=== PATIENT | female | born 1975 | race Caucasian/White ===

== ENCOUNTER 2021-04-29 18:59 | Emergency (ER) | payer BC | END 2021-04-29 22:20 | disposition home or self-care (01) | LOC: ER1 18:59 | DX: S61.012A Laceration without foreign body of left thumb without damage to nail, initial encounter (principal); Z23 Encounter for immunization; W26.8XXA Contact with other sharp object(s), not elsewhere classified, initial encounter; Y92.009 Unspecified place in unspecified non-institutional (private) residence as the place of occurrence of the external cause | CPT/HCPCS: 12001; 73130; 90471; 90715; 99283 ==

== ENCOUNTER 2021-12-19 05:31 | Inpatient (IN) | payer BC ==
[~2021-12-19] VITALS: Ht 157.5 cm; Wt 82.6 kg
[~2021-12-19 05:31] MED LIST: CEPHALEXIN500 M1 PO; SULFAMETHOXAZO1 EACH PO
[2021-12-19 06:49] LABS: HEMOGLOBIN 12.3 gm/dl (12.3-15.3); RED BLOOD COUNT 5.38 M/UL (4.00-5.10); WHITE BLOOD COUNT 7.3 K/UL (4.5-11.0)
[2021-12-19] MEDS ORDERED: HYDROCHLOROTHIA25 MG PO (10:48)
[2021-12-19] MEDS ORDERED: APPLE CIDER VI300 MG PO (10:53)
[2021-12-20 04:23] LABS: HEMOGLOBIN 10.8 gm/dl (12.3-15.3)
[2021-12-20 04:29] LABS: RED BLOOD COUNT 4.72 M/UL (4.00-5.10); WHITE BLOOD COUNT 9.5 K/UL (4.5-11.0)
[2021-12-21 05:02] LABS: BUN/CREATININE RATIO 13 (0-10)
[2021-12-22 02:58] LABS: HEMOGLOBIN 11.8 gm/dl (12.3-15.3); RED BLOOD COUNT 5.25 M/UL (4.00-5.10); WHITE BLOOD COUNT 11.1 K/UL (4.5-11.0)
[2021-12-22] MEDS ORDERED: CEPHALEXIN500 M1 PO (09:55)
== END 2021-12-22 13:25 | disposition home or self-care (01) | DRG 603 ==
LOC: ER1 05:31 → CDU 08:42 → M/S 08:42
PROVIDERS: Emergency Medicine; Physician Assistant; ADMIT Internal Medicine Infectious Disease
DX: L03.115 Cellulitis of right lower limb (principal); I10 Essential (primary) hypertension; G40.909 Epilepsy, unspecified, not intractable, without status epilepticus; E66.9 Obesity, unspecified; Z98.51 Tubal ligation status; Z88.8 Allergy status to other drugs, medicaments and biological substances; Z79.899 Other long term (current) drug therapy; Z82.49 Family history of ischemic heart disease and other diseases of the circulatory system; Z68.33 Body mass index [BMI] 33.0-33.9, adult
CPT/HCPCS: 36415; 71045; 73590; 80048; 80053; 80202; 81001; 82550; 82553; 83605; 83735; 83880; 84100; 84443; 84484; 85025; 85652; 85730; 86140; 87040; 87081; 87086; 93926; 93971; 96365; 96366; 96375; 99285; J0696; J1170; J1650; J3370; J7030; J7070